=== PATIENT | female | born 1960 | race Caucasian/White ===

== ENCOUNTER → 2017-01-19 | Outpatient (CLI) | payer OTHER ==
[~2017-01-19] MED LIST: B-COCAP2 PO; CHOL100010 PO; CHOL1TAB46 PO; [UNRECOGNIZED DRUG - CODE] PO
--- NOTE | 2017-01-20 13:17 | MAMMOGRAPHY REPORT ---
BILATERAL DIGITAL SCREENING MAMMOGRAM TOMOSYNTHESIS WITH CAD: 01/19/2017 TECHNIQUE: Breast tomosynthesis in addition to standard 2D mammography was performed. Current study was also evaluated with a Computer Aided Detection (CAD) system. COMPARISON: Comparison is made to exams dated: 01/14/2016 mammogram, 08/24/2013 mammogram, 08/23/2012 mammogram, and 06/26/2010 mammogram - [facility]. BREAST COMPOSITION: The tissue of both breasts is almost entirely fatty. FINDINGS: No suspicious masses, calcifications, or areas of architectural distortion are noted in e ither breast. There has been no significant interval change compared to prior exams. Benign-appeari ng calcifications in the right superior breast are again noted. IMPRESSION: ACR BI-RADS CATEGORY 2: BENIGN There is no mammographic evidence of malignancy. A 1 year screening mammogram is recommended. The p atient will receive written notification of the results. Approximately 10% of breast cancers are not detected with mammography. A negative mammographic repor t should not delay biopsy if a clinically suggestive mass is present. Carlita Garay M.D. ah/:01/19/2017 15:47:44 Gate Watchman: Cristina PETTY(R)(M), [facility] letter sent: Normal 1/2 BI-RADS Code: ACR BI-RADS Category 2: Benign
== END | disposition home or self-care (01) ==
LOC: C.MAMM 15:22
PROVIDERS: ATTEND Internal Medicine
DX: Z12.31 Encounter for screening mammogram for malignant neoplasm of breast (principal)

== ENCOUNTER → 2017-03-02 | Outpatient (CLI) | payer OTHER ==
--- NOTE | 2017-03-02 10:06 | DIAGNOSTIC IMAGING REPORT ---
SI JOINTS 3 OR MORE VIEWS CLINICAL HISTORY: Lumbago, sacroiliitis COMPARISON STUDY: No previous studies for comparison. FINDINGS: Degenerative changes are present within the lower lumbar spine. There is no SI joint fusion. There are no fractures. There are no erosive changes. Sclerotic changes involving the iliac side of the right SI joint are likely degenerative. IMPRESSION: No conventional radiographic evidence of an inflammatory sacroiliitis. Electronically signed by: Nikita Barclay M.D. 03/02/2017 10:04 AM Dictated Date/Time: 03/02/2017 10:03 AM
== END | disposition home or self-care (01) ==
LOC: C.RADBC 09:29
PROVIDERS: ATTEND Physician Assistant
DX: M54.5 Low back pain (principal); M46.1 Sacroiliitis, not elsewhere classified

== ENCOUNTER → 2017-05-17 | Outpatient (CLI) | payer OTHER ==
[~2017-05-17] MED LIST changes: -B-COCAP2 PO; -CHOL100010 PO
--- NOTE | 2017-05-17 15:19 | DIAGNOSTIC IMAGING REPORT ---
LEG LENGTH STUDY CLINICAL HISTORY: Leg length discrepancy. FINDINGS: An AP view of the lower extremities from a leg length study is presented. The skeletal structures are osteopenic. There is no evidence of fracture. The right leg measures 90.0 cm and the left leg measures 89.7 cm as measured from the femoral head to the tibial plafonds. The overlying soft tissues are normal as imaged. IMPRESSION: No significant leg length discrepancy is identified. Electronically signed by: Darren Mayfield M.D. 05/17/2017 3:18 PM Dictated Date/Time: 05/17/2017 3:16 PM
== END | disposition home or self-care (01) ==
LOC: C.RAD 14:53
PROVIDERS: ATTEND Physician Assistant
DX: M21.70 Unequal limb length (acquired), unspecified site (principal)

== ENCOUNTER → 2017-06-06 | Outpatient (CLI) | payer OTHER ==
[2017-06-06 12:42] LABS: CHOLESTEROL/HDL RATIO 4.6; THYROID STIMULATING HORMONE 2.52 uIu/ml (0.300-4.500)
[2017-06-06 13:02] LABS: ESTIMATED AVERAGE GLUCOSE 120 mg/dl; HA1C FLAG Normal (Normal)
== END | disposition home or self-care (01) ==
LOC: C.LABBFT 10:12
PROVIDERS: ATTEND Physician Assistant Medical
DX: Z00.00 Encounter for general adult medical examination without abnormal findings (principal); R73.09 Other abnormal glucose; E03.9 Hypothyroidism, unspecified

== ENCOUNTER → 2017-10-20 | Outpatient (CLI) | payer OTHER ==
[2017-10-20 12:39] LABS: CHOLESTEROL/HDL RATIO 2.7
== END | disposition home or self-care (01) ==
LOC: C.LABBFT 09:16
PROVIDERS: ATTEND Physician Assistant Medical
DX: E78.00 Pure hypercholesterolemia, unspecified (principal)

== ENCOUNTER → 2018-06-13 | Outpatient (CLI) | payer OTHER ==
[2018-06-13 17:28] LABS: BASO % 0.7 %; BASO ABS # 0.04 K/uL (0-0.2); EOS % 1.6 %; EOS ABS # 0.09 K/uL (0-0.5); HEMATOCRIT 43.3 % (37-47); HEMOGLOBIN 14.5 g/dL (12.0-16.0); IG# 0.01 K/uL (0.00-0.02); LYMPH % 26.9 %; LYMPH ABS # 1.55 K/uL (1.2-3.4); MEAN CELL VOLUME 97.1 fL (80-100); MEAN CORPUSCULAR HEMOGLOBIN 32.5 pg (25-34); MEAN CORPUSCULAR HGB CONC 33.5 g/dl (32-36); MONO % 10.1 %; MONO ABS # 0.58 K/uL (0.11-0.59); NEUT % 60.5 %; NEUT ABS # 3.49 K/uL (1.4-6.5); PLATELET COUNT 263 K/uL (130-400); RED CELL DISTRIBUTION WIDTH CV 14.7 % (11.5-14.5); RED CELL DISTRIBUTION WIDTH SD 52.5 fL (36.4-46.3); WHITE BLOOD COUNT 5.76 K/uL (4.8-10.8)
[2018-06-13 17:55] LABS: ALBUMIN 3.6 gm/dl (3.4-5.0); ALKALINE PHOSPHATASE 77 U/L (45-117); ALT/SGPT 23 U/L (12-78); AST/SGOT 14 U/L (15-37); BLOOD UREA NITROGEN 28 mg/dl (7-18); CALCIUM 8.7 mg/dl (8.5-10.1); CARBON DIOXIDE 24 mmol/L (21-32); CHOLESTEROL 191 mg/dl (0-200); CREATININE 1.17 mg/dl (0.60-1.20); GLUCOSE 87 mg/dl (70-99); LDL CHOLESTEROL CALCULATED 115 mg/dl; POTASSIUM 4.6 mmol/L (3.5-5.1); SODIUM 139 mmol/L (136-145); TOTAL PROTEIN 6.6 gm/dl (6.4-8.2)
== END | disposition home or self-care (01) ==
LOC: C.LABBFT 11:21
PROVIDERS: ATTEND Nurse Practitioner
DX: Z13.6 Encounter for screening for cardiovascular disorders (principal); E03.9 Hypothyroidism, unspecified; Z85.6 Personal history of leukemia; Z13.1 Encounter for screening for diabetes mellitus

== ENCOUNTER 2022-05-18 06:51 | Observation (INO) ==
--- NOTE | 2022-04-16 15:36 | PAT Medication Instructions ---
Medication Instructions Date of Service April 16, 2022 Home Medications Medication Instructions Recorded gabapentin 300 mg capsule 300 mg PO BID #20 cap 03/12/22 (Neurontin) cholecalciferol (vitamin D3) 125 mcg (5,000 unit) capsule 125 mcg PO QAM gabapentin 300 mg capsule (Neurontin) 300 mg PO BID cyanocobalamin (vitamin B-12) 2,500 mcg tablet 2,500 mcg PO WK iron,carbonyl 65 mg-vitamin C 125 mg tablet,delayed release (Vitron-C) 1 tab PO WK levothyroxine 137 mcg tablet 137 mcg PO QAM Continue as directed cyanocobalamin (vitamin B-12) 2,500 mcg tablet 2,500 mcg PO WK (do not take day of surgery) iron,carbonyl 65 mg-vitamin C 125 mg tablet,delayed release (Vitron-C) 1 tab PO WK (do not take day of surgery) DO NOT take the morning of surgery cholecalciferol (vitamin D3) 125 mcg (5,000 unit) capsule 125 mcg PO QAM Take morning of surgery With a small sip of water, OTHERWISE NOTHING TO EAT OR DRINK AFTER MIDNIGHT: gabapentin 300 mg capsule (Neurontin) 300 mg PO BID levothyroxine 137 mcg tablet 137 mcg PO QAM Take evening before surgery gabapentin 300 mg capsule (Neurontin) 300 mg PO BID Other Notes If you have any questions please call us at [phone] or [phone] or [phone] or [phone]
--- NOTE | 2022-04-21 10:54 | Anesthesiology Consultation ---
Date of Service April 21, 2022 Assessment & Plan (1) Encounter for pre-operative examination: - Hx CML: Per Saad at blood bank, patient had remotely required irradiated CMV negative blood products in the . Per [facility], Lina Edgar PAC reviewed records and recommend if blood transfusion needed, for them to have irradiated CMV negative blood products as they had previously. Erickson at blood bank aware/will prepare and arrange to have available if needed. - Post-op pain management: Patient states that she had good pain control with TAPS block used for cholecystectomy/HH done at another facility in the past. She would like one used for this procedure if possible. Case reviewed with Dr. Mcmahon. He said it would be up to discussion between patient and anesthesiologist AM DOS (pt aware/will discuss further AM DOS). - COVID screening: Per assessment on 04/21: No known COVID-19 positive contacts or current COVID-19 related symptoms. Travel screen negative. Patient vaccinated. Surgeon arranging preop COVID testing. Awaiting results. - Hx PONV: improvement with scope patch in the past. Will order for AM DOS. Chart Review Chart Review: Acceptable Risk for Surgery and Patient seen in Pre Admission Testing Teaching & Discussion Pre-Anesthesia Teaching/Discussion Notes: Instructed NPO after midnight before surgery,except medications with 15 cc of water. Medication instructions provided according to the PAT guidelines. History Surgery Operation Date: 05/18/22 07:30 Proposed Procedures p Robotic Laparoscopic Assisted Partial Nephrectomy Left - Wesley Byers MD Height/Weight Height: 5 ft 3 in Weight: 79.2 kg Allergies Allergy/AdvReac Type Severity Reaction Status Date / Time erythromycin base Allergy Unknown Gum Verified 04/20/22 09:15 swelling (as child), Has tolerated Zithromax per pt imipenem Allergy Unknown Seizures Verified 04/20/22 09:15 (has had Augmention without issue per pt) sulfamethoxazole Allergy Unknown Decreased Verified 04/20/22 09:15 WBC trimethoprim Allergy Unknown Decreased Verified 04/20/22 09:15 WBC vancomycin Allergy Unknown Rash, Verified 04/20/22 09:15 itching Medications Home Medications Medication Instructions Recorded Confirmed Last Taken cholecalciferol (vitamin D3) 125 125 mcg PO QAM 08/20/20 04/16/22 Unknown mcg (5,000 unit) capsule gabapentin 300 mg capsule 300 mg PO BID #20 cap 04/29/22 06/03/22 Unknown (Neurontin) cyanocobalamin (vitamin B-12) 2,500 mcg PO WK 04/16/22 04/16/22 Unknown 2,500 mcg tablet iron,carbonyl 65 mg-vitamin C 125 1 tab PO WK 04/16/22 04/16/22 Unknown mg tablet,delayed release (Vitron-C) levothyroxine 137 mcg tablet 137 mcg PO QAM 04/16/22 04/16/22 Unknown Past Medical History Medical History COVID-19 virus detected Covid positive 12/22/21 (home test) Dysmetabolic syndrome X H/O: CML (chronic myeloid leukemia) Dx at age 30, 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) > treated with INH for 9 month s Exercise / Class Metabolic Activity II 4-5 Yardwork/Stairs/Walk up hill (one FS (no CP, no SOB)) Past Family History Family History Unknown Varicella Hypertension Pure hypercholesterolemia Colon cancer Mother Multiple sclerosis Hypertension Father Pure hypercholesterolemia Lung cancer Grandfather Colon cancer Daughter Multiple sclerosis Denies family history of Ovarian cancer Prostate cancer Myocardial infarction Breast cancer Past Surgical History Surgical History H/O section History of bone marrow transplant History of cholecystectomy History of colonoscopy History of esophagogastroduodenoscopy (EGD) History of fundoplication History of sleeve gastrectomy Dr Curtis Mohan, [facility] History of tonsillectomy History of total abdominal hysterectomy with removal of both ovaries Hx of oral surgery tooth extraction Nausea and vomiting after administration of anesthetic agent Improvement with scope patch in the past Past Anesthesia History No Hx of Anesthesia Complications (except PONV) and No Family Hx of Anesthesia Complications History of PONV History of PONV (Improvement with scope patch in the past) and Hx of Motion Sick ness Social History Smoking Status: Former smoker tobacco type: cigarettes Do You Dip or Chew Tobacco: No Smoking End Date: Quit 30 years Hx Alcohol Use: Yes Alcohol type: wine alcohol intake frequency: holidays/special occasions only Hx Substance Use: No Review of Systems Patient denies chest pain, shortness of breath, dyspnea on exertion, fever, chills, cough, wheezing, palpitations. Physical Exam Vital Signs VITALS BP 102/69 P 77 TEMP 98.0 SP02 95%RA RESP 16 PHYSICAL Full cervical extension range of motion. Full TMJ range of motion. TMD 3.5 finger breaths Mallampati Score 2 Dentition: intact (several crowns, lower left bridge) Lungs: clear throughout to auscultation Cardiac: regular rate and rhythm, no murmurs noted Spine: normal Carotid arteries: negative bruit Extremities: no edema Lab Results Anesthesia Preop Results Results Anesthesia Widget: WBC 5.41 K/uL (4.8-10.8) 04/21/22 Hgb 14.1 g/dL (12.0-16.0) 04/21/22 Hct 42.4 % (37-47) 04/21/22 Plt 273 K/uL (130-400) 04/21/22 Na 141 mmol/L (136-145) 04/21/22 K 4.3 mmol/L (3.5-5.1) 04/21/22 Cl 106 mmol/L (98-107) 04/21/22 CO2 28 mmol/L (21-32) 04/21/22 BUN 21 mg/dl (6-23) 04/21/22 Creat 1.06 mg/dl (0.6-1.2) 04/21/22 Glucose Level 97 mg/dl (70-99(Fasting)) 04/21/22 Urine Color Yellow 04/21/22 Urine Appearance Clear (Clear) 04/21/22 Urine pH 6.5 (4.5-7.5) 04/21/22 Urine Specific [place] 1.010 (1.000-1.030) 04/21/22 Urine Protein Negative (Negative) 04/21/22 Urine Glucose (UA) Negative (Negative) 04/21/22 Urine Ketones Negative (Negative) 04/21/22 Urine Blood Negative (Negative) 04/21/22 Urine Nitrite Negative (Negative) 04/21/22 Urine Bilirubin Negative (Negative) 04/21/22 Urine Urobilinogen Negative (Negative) 04/21/22 Urine Leukocyte Esterase Negative (Negative) 04/21/22 Blood Type A Positive 04/21/22 Antibody Screen NEGATIVE 04/21/22 Testing Electrocardiogram Date: 04/21/22 NSR at 66bpm. RBBB. unconfirmed report. Chest X-Ray Date: 04/21/22 Findings: + NAD
[~2022-05-18 06:51] MED LIST changes: -CHOL1TAB46 PO; +LR 15ML/HR IV SCH; +Scopolamine 1 MG TDSY TD SCH; -[UNRECOGNIZED DRUG - CODE] PO; +ceFAZolin 2000MG 2,000 MG/15 ML SYR IV SCH
[2022-05-18] MEDS ORDERED: BUPIVACAINE 0.5 % 5 MG/1 ML MPF 30ML VIAL ONE (07:20)
[2022-05-18] MEDS ORDERED: Nursing to Pharmacy Communication SCH (07:30)
[2022-05-18] MEDS ORDERED: ceFAZolin 2,000 MG/15 ML IV PUSH IV ONE (07:32)
[2022-05-18] MEDS ORDERED: ePHEDrine sulfate 50 MG/ML AMP IV PRN (08:12)
[2022-05-18] MEDS ORDERED: ATROPINE SULFATE 0.1 MG/ML 10ML SYR IV PRN (08:12)
[2022-05-18] MEDS ORDERED: fentaNYL citrate 100 MCG/2 ML VIAL IV PRN (08:12)
[2022-05-18] MEDS ORDERED: ONDANSETRON INJ 2 MG/ML 2 ML VIAL IV PRN ×2 (08:12→14:23)
[2022-05-18] MEDS ORDERED: MIDAZOLAM HCL 1 MG/ML 2ML VIAL ONE (09:07)
[2022-05-18] MEDS ORDERED: fentaNYL citrate 100 MCG/2 ML VIAL ONE (09:07)
[2022-05-18] MEDS ORDERED: MANNITOL 25% 12.5 GM/50 ML VIAL IV ONE (09:27)
--- NOTE | 2022-05-18 10:01 | History & Physical Report ---
Date of Service May 18, 2022 Assessment & Plan (1) Renal mass: Plan: left renal mass - suspected renal cell carcinoma presenting now for left robotic partial nephrectomy - prior gastric surgery - we have discussed the possibility of radical nephrectomy, but I hope to avoid this - she is also aware that her pathology could ultimately be benign History of Present Illness Primary Care Provider: MOSES Ward 61y/o female with a left renal lesion presenting now for robotic partial nephrectomy Allergies Allergy/AdvReac Type Severity Reaction Status Date / Time erythromycin base Allergy Unknown Gum Verified 05/18/22 07:33 swelling (as child), Has tolerated Zithromax per pt imipenem Allergy Unknown Seizures Verified 05/18/22 07:33 (has had Augmention without issue per pt) sulfamethoxazole Allergy Unknown Decreased Verified 05/18/22 07:33 WBC trimethoprim Allergy Unknown Decreased Verified 05/18/22 07:33 WBC vancomycin Allergy Unknown Rash, Verified 05/18/22 07:33 itching Home Medications Medication Instructions Recorded Confirmed Type cholecalciferol (vitamin D3) 125 125 mcg PO QAM 08/20/20 05/18/22 History mcg (5,000 unit) capsule gabapentin 300 mg capsule 300 mg PO BID #20 cap 03/12/22 05/18/22 Rx (Neurontin) cyanocobalamin (vitamin B-12) 2,500 mcg PO WK 04/16/22 05/18/22 History 2,500 mcg tablet iron,carbonyl 65 mg-vitamin C 125 1 tab PO WK 04/16/22 05/18/22 History mg tablet,delayed release (Vitron-C) levothyroxine 137 mcg tablet 137 mcg PO QAM 04/16/22 05/18/22 History nitrofurantoin 100 mg PO Q12H 7 Days #14 cap 04/23/22 05/18/22 Rx monohydrate/macrocrystals 100 mg capsule (Macrobid) Past Med/Surg History Medical History COVID-19 virus detected Covid positive 12/22/21 (home test) Dysmetabolic syndrome X H/O: CML (chronic myeloid leukemia) Dx at age 30, 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 ([id number]) > treated with INH for 9 months Surgical History H/O section History of bone marrow transplant History of cholecystectomy History of colonoscopy History of esophagogastroduodenoscopy (EGD) History of fundoplication History of sleeve gastrectomy Dr Curtis Mohan, [facility] History of tonsillectomy History of total abdominal hysterectomy with removal of both ovaries Hx of oral surgery tooth extraction Nausea and vomiting after administration of anesthetic agent Improvement with scope patch in the past Family History Unknown Varicella Hypertension Pure hypercholesterolemia Colon cancer Mother Multiple sclerosis Hypertension Father Pure hypercholesterolemia Lung cancer Grandfather Colon cancer Daughter Multiple sclerosis Denies family history of Ovarian cancer Prostate cancer Myocardial infarction Breast cancer Social History Smoking Status: Former smoker Age Started Using Tobacco: 20; Age Quit Using Tobacco: 30; packs per day: 0.25; Years Smoked: 10; Second Hand Exposure: Yes; Hx Alcohol Use: Yes Alcohol type: wine Alcohol Intake Frequency Comment: rare - a few per year Hx Substance Use: No Preferred Language: Armenian Communication Ability: Effective Visual Impairment: No Limitations Hearing Ability: Normal Transplanter Orchid Required: No Beliefs That Will Affect Care: None marital status: Current Living Situation: Alone current occupational status: employed and retired current occupation: RN Feels Safe at Home: Yes Childhood Exposure to Second-Hand Smoke: No Dental Care, Regularly: Yes Physical Activity Frequency: Does not Exercise Assistive Devices: Glasses Physical Exam Constitutional: well developed and well nourished Neck: neck nontender Respiratory: normal respiratory effort; no respiratory distress and does not use accessory muscles Cardiovascular: Rate/Rhythm: regular rate Vessels: radial pulses present Extremities: no edema Gastrointestinal (Abdomen): Inspection/Auscultation: abdomen normal to inspection Percussion/Palpation: abdomen soft; abdomen nontender and no guarding Musculoskeletal: Head/Neck/Chest: normocephalic and head atraumatic Extremities: extremities normal to inspection Skin: no rashes and no lesions Trauma: no evidence of skin trauma Neurologic: awake; not obtunded Speech / Cognition: normal speech Motor/Sensory: no tremor Psychiatric: Orientation: alert and oriented x 3 Lymphatic: no lymphadenopathy Results & Data ([facility]) Vital Signs (Past 12 Hours) Vital Signs Temp Pulse Resp BP Pulse Ox 05/18/22 07:09 36.6 C 76 20 113/78 98
[2022-05-18] MEDS ORDERED: HYDROmorphone INJ 2 MG/ML SYR/VIAL ONE (10:56)
[2022-05-18] MEDS ORDERED: ePHEDrine sulfate 50 MG/ML AMP ONE (10:57)
[2022-05-18] MEDS ORDERED: GLYCOPYRROLATE 0.2 MG/ML VIAL ONE (10:57)
[2022-05-18] MEDS ORDERED: NEOSTIGMINE METHYLSULFATE 1 MG/ML 10ML VIAL ONE (10:57)
[2022-05-18] MEDS ORDERED: LIDOCAINE 2% 2 ML VIAL/AMP(20MG/ML) INFIL ONE (10:57)
[2022-05-18] MEDS ORDERED: LARYING-O-JET KIT (LTA) ONE (10:57)
[2022-05-18] MEDS ORDERED: ONDANSETRON INJ 2 MG/ML 2 ML VIAL ONE (10:57)
[2022-05-18] MEDS ORDERED: PHENYLEPHRINE 100MCG/ML 5ML SYR ONE (10:57)
[2022-05-18] MEDS ORDERED: PROPOFOL IV EMULSION 10 MG/ML 20 ML VIAL IV ONE (10:57)
[2022-05-18] MEDS ORDERED: DEXAMETHASONE SOD INJ 4 MG/ML VIAL ONE (10:57)
[2022-05-18] MEDS ORDERED: ROCURONIUM BROMIDE 10 MG/ML 5 ML VIAL IV ONE ×2 (10:57→12:17)
[2022-05-18] MEDS ORDERED: FLOSEAL HEMOSTATIC MATRIX 10ML TOP ONE (11:14)
[2022-05-18] MEDS ORDERED: TISSEEL FIBRIN SEALANT 10ML TOP ONE (11:14)
[2022-05-18] MEDS ORDERED: SURGICEL ABSORB HEMOSTAT 2IN X 14IN TOP ONE (11:50)
--- NOTE | 2022-05-18 13:13 | Operative Report ---
PG Post Operative Report Pre & Post Diagnosis Operation Date: 05/18/22 08:50 Pre-Op Diagnosis: Left Renal Mass Post-Op Diagnosis: Left Renal Mass I identified the patient and participated in the time-out.: Yes Procedure Operation Date: 05/18/22 08:50 Actual Procedures p Robotic Laparoscopic Assisted Left Partial Nephrectomy (Left) - Wesley Byers MD Surgeon Wesley Byers MD Compactor Driver none Estimated Blood Loss 200 Findings Consistent with Post-Op Diagnosis Specimens Left renal mass Description of Procedure Patient was identified in the preoperative holding area and informed consents reviewed and completed. Upon arrival in the operating suite she received Ancef. General anesthesia was induced and she was placed in a [id number] left side up lateral decubitus position with the bed flexed. After sterile prep and drape a Veress needle was passed into the left upper quadrant. Insufflation was uniform. I marked tentative port sites with 1 just under the costal margin at the rectus border. 3 additional robotic port sites were marked each 6 cm inferior to the superior port above it. I entered the port site that was second from the costal margin. Inspection revealed a healthy-appearing abdominal wall without any significant adhesions. I checked other port sites and all were suitable for port positioning all ports were placed under direct vision. I placed an additional 12 mm advertising assistant manager port in the midline above the umbilicus by about 5 cm. There is a subumbilical port placed as well. To begin the case and mobilized the white line of Toldt by incising it sharply and medializing the colon. Additionally freed it for some its attachments under the spleen. Fortunately the spleen was adherent to the diaphragm and was lifted cephalad and off of the kidney. As I mobilized the colon I was able to visualize the tail of the pancreas. Care was used to avoid injury. I continue to expose the anterior surface of the kidney. At the inferior pole I identified the ureter and the gonadal vein and I created a window just medial to both. This was dissected down onto the psoas muscle. I utilized an instrument to create a window behind the kidney and subsequently elevate the kidney placing the hilar structures on stretch. Artery and vein were identified and skeletonized. I then turned my attention to the kidney itself. She has scant Gerota's fascia. Fortunately this was of extreme benefit as her mass is upper pole and posterior. I dissected circumferentially around the kidney until I could mobilize the upper pole and visualized the mass circumferentially. I performed an ultrasound evaluation of the mass to confirm its depth of invasion. Before clamping the hilar structures to be administered 12.5 g of mannitol. A timeout was taken and then a short straight bulldog clamp placed across the artery and a short curved bulldog clamp placed across the vein. We began resecting the mass. There was still some bleeding where able to continue working without altering her clamps. After the mass was entirely freed reconstruction of the kidney was conducted utilizing a sliding clip technique and 2 oh V-Loc sutures. 3 passages across the defect was sufficient for closure. We then unclamped the hilar structures marking the time. 13 minutes of warm ischemia time were noted. 12.5 g of additional mannitol was administered. Hemostasis was excellent. We irrigated and cleansed the area. Floseal was placed over the defect followed by Tisseel. The specimen itself was collected in an Endo Catch bag and ultimately extracted through the most inferior robotic port. Gerota's fascia was reconstructed over the kidney utilizing a 3 OV lock suture. A ERIN drain was placed through one of the robotic ports and all incisions were closed with 4-0 Monocryl in the skin and the 12 mm ports were closed with 0 Vicryl through the fascia before the 4-0 Monocryl. The extraction site was closed in the same fashion. Dermabond was placed over all incisions. She tolerated the procedure well and was taken to the PACU in stable condition. There were no complications. Dr. Austin Alas and Lina Mckeon assisted throughout the surgery. I attest to the content of the Intraoperative Record and any orders documented therein. Any exceptions are noted below.
[2022-05-18 13:32] LABS: Basophils # (auto) 0.01 K/uL (0-0.2); Basophils % (auto) 0.2 %; Eosinophils # (auto) 0.03 K/uL (0-0.5); Eosinophils % (auto) 0.6 %; Hematocrit (blood only) 38.9 % (37-47); Hemoglobin 12.9 g/dL (12.0-16.0); Immature Granulocytes # (auto) 0.01 K/uL (0.00-0.02); Immature Granulocytes % (auto) 0.2 %; Lymphocytes # (auto) 0.96 K/uL (1.2-3.4); Lymphocytes % (auto) 18.3 %; Mean Corpuscular Hemoglobin 32.7 pg (25-34); Mean Corpuscular Volume 98.5 fL (80-100); Mean Platelet Volume 9.1 fL (7.4-10.4); Monocytes # (auto) 0.17 K/uL (0.11-0.59); Monocytes % (auto) 3.2 %; Neutrophils # (auto) 4.08 K/uL (1.4-6.5); Neutrophils % (auto) 77.5 %; Platelet Count 190 K/uL (130-400); RDW Coefficient of Variation 14.4 % (11.5-14.5); Red Blood Count 3.95 M/uL (4.2-5.4); White Blood Count 5.26 K/uL (4.8-10.8)
[2022-05-18 13:38] LABS: Mean Corpuscular Hgb Conc 33.2 g/dL (32-36)
--- NOTE | 2022-05-18 13:47 | Anesthesiology Progress Note ---
Date of Service May 18, 2022 Anesthesia Post Procedure Vital Signs Vital Signs: Temp Pulse Pulse Resp BP Pulse Ox 05/18/22 13:40 82 18 130/72 97 05/18/22 13:30 84 17 130/76 98 05/18/22 13:20 81 12 129/79 98 05/18/22 13:10 82 18 128/77 99 05/18/22 13:00 83 12 126/72 99 05/18/22 12:54 96.8 F L 92 H 17 123/72 100 05/18/22 07:09 97.9 F 76 20 113/78 98 Pain Intensity Abdomen: Pain Intensity: 3 Transfer of Care Handoff Completed per policy Notes Mental Status: alert / awake / arousable and participated in evaluation Patient Amnestic to Procedure: Yes Nausea / Vomiting: adequately controlled Pain: adequately controlled Airway Patency, RR, SpO2: stable & adequate BP & HR: stable & adequate Hydration State: stable & adequate Anesthetic Complications: no major complications apparent and Pt Satisfied with anesthetic care
[2022-05-18 13:57] LABS: BUN Creatinine Ratio 21.9 (10-20); Calcium 8.3 mg/dl (8.5-10.1); Creatinine Clr Calc Pharmacy 60.9 ml/min; Est GFR (Non-African American) 63.8 ml/min; Potassium 4.1 mmol/L (3.5-5.1)
[2022-05-18] MEDS ORDERED: oxyCODONE HCL IR 5 MG TAB (IMMEDIATE RELEASE) PO PRN ×2 (14:23)
[2022-05-18] MEDS ORDERED: MoRPHine SULFATE 2 MG/ML CARP IV PRN ×2 (14:23)
[2022-05-18] MEDS: LACTATED RINGER'S 1,000 ML IV SCH (14:46)
[2022-05-18] MEDS ORDERED: Scopolamine CHECK PATCH PLACEMENT SCH (16:00)
[2022-05-18] MEDS: ACETAMINOPHEN 325 MG TAB PO PRN (17:19)
[2022-05-18] MEDS: ceFAZolin 2000MG 2,000 MG/15 ML SYR IV SCH (19:41)
[2022-05-18] MEDS: DOCUSATE SODIUM 100 MG CAP PO SCH (21:22)
[2022-05-18] MEDS: GABAPENTIN 300 MG CAP PO SCH (21:23)
[2022-05-19] MEDS: traMADol HCL 50 MG TABLET PO PRN ×2 (00:33→13:35)
[2022-05-19] MEDS: LACTATED RINGER'S 1,000 ML IV SCH (00:34)
[2022-05-19] MEDS: ceFAZolin 2000MG 2,000 MG/15 ML SYR IV SCH (02:31)
[2022-05-19] MEDS: LEVOTHYROXINE SODIUM 137 MCG TABLET PO SCH (05:57)
[2022-05-19 07:13] LABS: Basophils # (auto) 0.02 K/uL (0-0.2); Basophils % (auto) 0.3 %; Eosinophils # (auto) 0.01 K/uL (0-0.5); Eosinophils % (auto) 0.2 %; Hematocrit (blood only) 34.3 % (37-47); Hemoglobin 11.7 g/dL (12.0-16.0); Immature Granulocytes # (auto) 0.01 K/uL (0.00-0.02); Immature Granulocytes % (auto) 0.2 %; Lymphocytes # (auto) 1.45 K/uL (1.2-3.4); Lymphocytes % (auto) 23.3 %; Mean Corpuscular Hemoglobin 32.6 pg (25-34); Mean Corpuscular Hgb Conc 34.1 g/dL (32-36); Mean Corpuscular Volume 95.5 fL (80-100); Mean Platelet Volume 9.3 fL (7.4-10.4); Monocytes # (auto) 0.61 K/uL (0.11-0.59); Monocytes % (auto) 9.8 %; Neutrophils # (auto) 4.12 K/uL (1.4-6.5); Neutrophils % (auto) 66.2 %; Platelet Count 214 K/uL (130-400); RDW Coefficient of Variation 14.5 % (11.5-14.5); RDW Standard Deviation 51.2 fL (36.4-46.3); Red Blood Count 3.59 M/uL (4.2-5.4); White Blood Count 6.22 K/uL (4.8-10.8)
[2022-05-19 07:30] LABS: BUN Creatinine Ratio 18.6 (10-20); Calcium 8.2 mg/dl (8.5-10.1); Creatinine Clr Calc Pharmacy 60.3 ml/min; Est GFR (African American) 73.1 ml/min; Potassium 4.1 mmol/L (3.5-5.1)
--- NOTE | 2022-05-19 08:12 | Urology Progress Note ---
Date of Service May 19, 2022 Assessment & Plan (1) Renal mass: Plan: Postop day #1 status post left robotic partial nephrectomy Recovery on pace Guzman catheter out today Ambulate Advance diet Hep-Lock IV fluid Monitor ERIN outputdischarge later today or tomorrow Admission and Anticipated Discharge Date Admission Date: May 18, 2022 Subjective Doing very well this morning Modest pain Clear urine No subjective complaints Physical Exam Physical Exam: Abdomen soft, incisions appropriate ERIN serosanguineous with scant output Urine clear Results & Data ([facility]) Vital Signs (Past 12 Hours) Vital Signs Temp Pulse Resp BP Pulse Ox 05/19/22 08:02 36.5 C 82 18 110/72 96 05/19/22 02:30 36.7 C 80 16 105/67 95 05/18/22 22:19 36.4 C L 76 16 122/77 97 PG Care Time/CCT Total # of Minutes Spent Total Time Spent with Patient: Total time spent is greater than 50% in coordination of care (as documented) at patient's floor/unit and/or counseling patient: Coding Level of Care Code None Diagnoses Renal mass N28.89
[2022-05-19] MEDS: DOCUSATE SODIUM 100 MG CAP PO SCH ×2 (09:41→19:43)
[2022-05-19] MEDS: GABAPENTIN 300 MG CAP PO SCH ×2 (09:41→19:42)
[2022-05-19] MEDS: ACETAMINOPHEN 325 MG TAB PO PRN (19:41)
[2022-05-20] MEDS: traMADol HCL 50 MG TABLET PO PRN (05:31)
[2022-05-20] MEDS: LEVOTHYROXINE SODIUM 137 MCG TABLET PO SCH (05:32)
[2022-05-20 07:24] LABS: Basophils # (auto) 0.03 K/uL (0-0.2); Basophils % (auto) 0.5 %; Eosinophils # (auto) 0.05 K/uL (0-0.50); Eosinophils % (auto) 0.8 %; Hematocrit (blood only) 34.8 % (34.1-44.9); Hemoglobin 11.8 g/dl (12.0-16.0); Immature Granulocytes # (auto) 0.02 K/uL (0.00-0.02); Immature Granulocytes % (auto) 0.3 %; Lymphocytes # (auto) 1.15 K/uL (1.2-3.4); Lymphocytes % (auto) 18.4 %; Mean Corpuscular Hemoglobin 32.1 pg (25.0-34.0); Mean Corpuscular Hgb Conc 33.9 g/dL (32.0-36.0); Mean Corpuscular Volume 94.6 fL (80.0-100.0); Mean Platelet Volume 9.3 fL (9.4-12.3); Monocytes # (auto) 0.54 K/uL (0.24-0.82); Monocytes % (auto) 8.6 %; Neutrophils # (auto) 4.46 K/uL (1.4-6.5); Neutrophils % (auto) 71.4 %; Platelet Count 182 K/uL (130-400); RDW Standard Deviation 49.3 fL (36.4-46.3); Red Blood Count 3.68 M/uL (3.93-5.22); White Blood Count 6.25 K/ul (4.8-10.8)
[2022-05-20 07:44] LABS: BUN Creatinine Ratio 21.9 (10-20); Calcium 8.5 mg/dl (8.5-10.1); Creatinine Clr Calc Pharmacy 60.9 ml/min; Est GFR (Non-African American) 63.8 ml/min; Potassium 3.9 mmol/L (3.5-5.1)
[2022-05-20] MEDS: DOCUSATE SODIUM 100 MG CAP PO SCH (08:08)
[2022-05-20] MEDS: GABAPENTIN 300 MG CAP PO SCH (08:08)
--- NOTE | 2022-05-20 08:08 | Urology Progress Note ---
Date of Service May 20, 2022 Assessment & Plan (1) Renal mass: Plan: Status post left robotic partial nephrectomy discharge home this morningJP removal prior to leaving hospital Admission and Anticipated Discharge Date Admission Date: May 18, 2022 Subjective Doing very well this morning No issues overnight Physical Exam Physical Exam: Incisions appropriate ERIN with scant outputserosanguineous Results & Data ([facility]) Vital Signs (Past 12 Hours) Vital Signs Temp Pulse Resp BP Pulse Ox 05/20/22 06:08 36.9 C 77 16 103/66 94 05/19/22 21:37 36.9 C 75 16 100/64 96 PG Care Time/CCT Total # of Minutes Spent Total Time Spent with Patient: Total time spent is greater than 50% in coordination of care (as documented) at patient's floor/unit and/or counseling patient: Coding Level of Care Code None Diagnoses Renal mass N28.89
--- NOTE | 2022-05-20 13:31 | Discharge Summary ---
Date of Service May 20, 2022 Admission HPI Per Admitting Provider 61y/o female with a left renal lesion presenting now for robotic partial nephrectomy Admission Exam Per Admitting Provider Constitutional: well developed and well nourished Neck: neck nontender Respiratory: normal respiratory effort; no respiratory distress and does not use accessory muscles Cardiovascular: Rate/Rhythm: regular rate Vessels: radial pulses present Extremities: no edema Gastrointestinal (Abdomen): Inspection/Auscultation: abdomen normal to inspection Percussion/Palpation: abdomen soft; abdomen nontender and no guarding Musculoskeletal: Head/Neck/Chest: normocephalic and head atraumatic Extremities: extremities normal to inspection Skin: no rashes and no lesions Trauma: no evidence of skin trauma Neurologic: awake; not obtunded Speech / Cognition: normal speech Motor/Sensory: no tremor Psychiatric: Orientation: alert and oriented x 3 Lymphatic: no lymphadenopathy Principal Diagnosis Left Renal Mass Discharge Exam Abdomen soft, incisions appropriate ERIN serosanguineous with scant output Urine clear Constitutional no acute distress Respiratory no respiratory distress and no labored breathing Neurologic moves all extremities and awake Psychiatric A+Ox3, euthymic affect Discharge Data Allergies Allergy/AdvReac Type Severity Reaction Status Date / Time erythromycin base Allergy Unknown Gum Verified // 07:33 swelling (as child), Has tolerated Zithromax per pt imipenem Allergy Unknown Seizures Verified 05/18/ 07:33 (has had Augmention without issue per pt) sulfamethoxazole Allergy Unknown Decreased Verified 05/18/ 07:33 WBC trimethoprim Allergy Unknown Decreased Verified 05/18/ 07:33 WBC vancomycin Allergy Unknown Rash, Verified 05/18/ 07:33 itching Procedures Performed Operation Date: 05/18/22 08:50 Actual Procedures p Robotic Laparoscopic Assisted Left Partial Nephrectomy (Left) - Wesley Byers MD Hospital Course (1) Renal mass: 61-year-old female admitted status post Robotic Laparoscopic Assisted Left Partial Nephrectomy - No acute issues postoperatively. - Stable labs and good urine output. - Pt passed a voiding trial on postop day #1. - Tolerated diet. - Ambulated without issue. - Minimal pain. - ERIN drain removed postop day #2. - Pt discharged home in stable condition on POD#2. - Postoperative follow-up appointment in place. Total Time Total Time Spent Total Time Spent (In Minutes): 15 Discharge Plan Discharge Items Patient Disposition: Home - Self-Care Reason For Visit: Renal Mass Discharge Diagnosis: Renal Mass Condition on Discharge: Good Activity: Per Instructions section Lifting: No more than 25 pounds Bathing Comment: OK to shower. No tub baths or soaks. Sexual Activity: Wait until after follow-up appointment Exercise/Sports: Wait until after follow-up appointment Driving/Machine Use: Do not drive if taking prescription pain medication. Non-emergency contact: Surgeon and Urologist Call non-emergency contact if: you have any medication questions, your pain is not controlled, your pain is worsening, you have a fever, your wound has increased redness, your wound has increased drainage and your wound pain has increased Follow-up/Referrals: Agustina Cole CRNP [Primary Care Provider] - Wesley Byers MD [Physician] - 06/07/22 1:45 pm Diet: Regular Addtl Attending Provider Instructions: Please take all medications as prescribed and keep all follow-ups as scheduled. Please call our office at [phone] with any questions, concerns or need to reschedule appointments for any reason. We are happy to assist you. Recovering at home: We recommend having someone with you for the first few days after surgery to help care for you. It is okay to shower tomorrow. Please avoid swimming, bathing or using hot tub until incisions are well healed. Avoid driving until you are not requiring pain medication any further. Walk at least a few times a day. Increase your distance, as you feel able. Stairs in your home are okay. Please avoid strenuous or sexual activity until your follow-up. We recommend using stool softener (i.e. Colace) to prevent constipation and straining, especially the first two weeks post operatively. Call [facility] at [phone] if you experience: Chest pain or trouble breathing (call [phone] or go to the hospital). Fever of 101F or higher Symptoms of infection at incision site, including redness or swelling, warmth, or bad-smelling drainage Pain that is not controlled with medicines Pending Studies at Discharge: Yes Studies:: Pathology Stand-Alone Forms: My [employer], Smoking Cessation Medications and DC Order Prescriptions: Continued nitrofurantoin monohyd/m-cryst [Macrobid] 100 mg capsule 100 mg PO Q12H 7 Days Qty: 14 RF: 0 gabapentin [Neurontin] 300 mg capsule 300 mg PO BID Qty: 20 RF: 0 cholecalciferol (vitamin D3) 125 mcg (5,000 unit) capsule 125 mcg PO QAM RF: 0 levothyroxine 137 mcg tablet 137 mcg PO QAM RF: 0 Vitron-C 65 mg iron- 125 mg Tablet,Delayed Release (Dr/Ec) 1 tab PO WK RF: 0 cyanocobalamin (vitamin B-12) 2,500 mcg Tablet 2,500 mcg PO WK RF: 0 Discharge Orders: Discharge Order (Routine); Ordered 05/20/22 Ordered By: Lina Bah/Other Patient Handouts: ED Tumor, Uncertain Cause Admission Data Admit Date/Time: 05/18/22 13:03 Attending Provider: Wesley Byers Admit Provider: Wesley Byers Primary Care Provider: Agustina Cole Other Interventions: Discharge Summary Assessment (RN) Last Done: 05/20/22 10:53 Coding Level of Care Code D/C DAY MANAGEMENT <30 MINS Diagnoses Renal mass N28.89
== END 2022-05-20 11:28 | disposition home or self-care (01) ==
LOC: ASU 06:51 → 3W 13:03 → INTOOBSV 13:03